=== PATIENT | male | born 1965 | race Caucasian/White ===

== ENCOUNTER 2020-08-12 18:22 | Emergency (ER) | payer OTHER ==
[~2020-08-12] VITALS: Ht 177.8 cm; Wt 83.9 kg
[2020-08-12 18:42] VITALS: Ht 177.8 cm; Wt 83.9 kg
[2020-08-12 22:04] VITALS: BP 131/83
== END 2020-08-12 22:04 | disposition home or self-care (01) ==
LOC: ED 18:22
DX: M25.561 Pain in right knee (principal); M25.562 Pain in left knee; I50.9 Heart failure, unspecified; Z02.79 Encounter for issue of other medical certificate; Z98.890 Other specified postprocedural states; Z59.0 Homelessness